=== PATIENT | male | born 1970 | race Caucasian/White ===

== ENCOUNTER 2016-07-02 18:19 | Inpatient (IN) | payer SELFPAY ==
[~2016-07-02] VITALS: Ht 177.8 cm; Wt 79.3 kg
[2016-07-02 19:30] LABS: Basophils # (auto) 0 uL; Basophils % (auto) 0.3 % (0.0-2.0); Eosinophils # (auto) 0.2 uL; Eosinophils % (auto) 1.4 % (0.0-7.0); Hematocrit 41.9 % (41.0-53.0); Hemoglobin 13.9 g/dL (13.5-17.5); Lymphocytes # (auto) 3.6 uL; Lymphocytes % (auto) 26.9 % (10.0-50.0); Mean Corpuscular Hgb Conc. 33.2 g/dL (32.0-36.0); Mean Corpuscular Volume 84.4 fL (80.0-100.0); Mean Platelet Volume 8.6 fL (7.4-10.4); Monocytes # (auto) 1.1 uL; Monocytes % (auto) 8.4 % (0.0-12.0); Neutrophils # (auto) 8.5 uL; Platelet Count (auto) 372 10^3/uL (140-450); Red Cell Distribution Width 13.2 % (11.6-16.0); White Blood Cell 13.4 10^3/uL (4.4-10.8)
[2016-07-02 19:51] LABS: Albumin 4.1 g/dL (3.4-5.0); BUN/Creatinine Ratio 12.8; Calcium 9.1 mg/dL (8.5-10.1); Potassium 3.8 mmol/L (3.5-5.1)
[2016-07-02 19:54] LABS: Bilirubin, Total 0.4 mg/dL (0.2-1.0); Total Protein 7.3 g/dL (6.4-8.2)
[2016-07-02 20:18] LABS: Urine Bilirubin Negative (Negative); Urine Ca Oxalate Crystal FEW (None Seen); Urine Color Yellow (Yellow); Urine Glucose Normal (Normal); Urine Ketone Negative (Negative); Urine Mucus FEW (None Seen); Urine Nitrite Negative (Negative); Urine RBC 26 /hpf (0 - 3); Urine Squamous Epithelial Cell FEW /hpf (<5); Urine Urobilinogen Normal (Negative); Urine pH 5.5 (5.0-8.0)
[2016-07-02 20:30] LABS: Urine Blood 2+ /uL (Negative)
[2016-07-03] MEDS ORDERED: SODIUM CHLORIDE 0.9% 1,000 ML IV ONE (00:30)
[2016-07-03] MEDS ORDERED: MORPHINE SULFATE 4 MG/ML SYRG IV ONE ×2 (00:30→05:00)
[2016-07-03] MEDS ORDERED: cefTRIAXone 1GM/50ML D5W 50 ML IV ONE (00:30)
[2016-07-03] MEDS ORDERED: ONDANSETRON HCL 4 MG/2 ML VIAL IV ONE ×2 (00:30→05:00)
[2016-07-03] MEDS ORDERED: SODIUM CHLORIDE 0.9% 1,000 ML IV SCH (05:41)
[2016-07-03] MEDS ORDERED: HYDROcodone-ACET 5/325MG TAB PO PRN (05:45)
[2016-07-03] MEDS ORDERED: ACETAMINOPHEN 325 MG TAB PO PRN (05:45)
[2016-07-03] MEDS ORDERED: ONDANSETRON HCL 4 MG/2 ML VIAL IV PRN (05:45)
[2016-07-03] MEDS ORDERED: TAMSULOSIN HYDROCHLORIDE 0.4 MG CAP PO ONE (05:45)
[2016-07-03 08:30] VITALS: BP 136/96
[2016-07-03 09:00] VITALS: BP 136/96
[2016-07-03] MEDS: FAMOTIDINE 20 MG TAB PO SCH ×2 (09:11→22:18)
[2016-07-03] MEDS ORDERED: ENOXAPARIN SOD 40 MG/0.4 ML SYRINGE SC SCH (10:00)
[2016-07-03] MEDS ORDERED: ENOXAPARIN SOD 30 MG/0.3 ML SYRINGE SC SCH (10:00)
[2016-07-03 13:00] VITALS: BP 132/74
[2016-07-03] MEDS: SOD CHL 0.9%/ KCL 20MEQ 1,000 ML IV SCH ×2 (13:16→23:00)
[2016-07-03] MEDS: MORPHINE SULF INJ 2 MG/ML SYRINGE 1ML IV PRN ×2 (13:59→20:52)
[2016-07-03 17:00] VITALS: BP 141/84
[2016-07-03] MEDS ORDERED: TAMSULOSIN HYDROCHLORIDE 0.4 MG CAP PO SCH (18:00)
[2016-07-03 18:49] LABS: INR 0.98 (0.9-1.15); Partial Thromboplastin Time 26.4 sec (22.64-33.71); Prothrombin Time 10.6 sec (9.37-12.3)
[2016-07-03 21:30] VITALS: BP 141/83
[2016-07-04 05:00] VITALS: BP 144/81
[2016-07-04 07:00] LABS: Basophils # (auto) 0.1 uL; Basophils % (auto) 0.5 % (0.0-2.0); Eosinophils # (auto) 0.3 uL; Eosinophils % (auto) 2.4 % (0.0-7.0); Hematocrit 42.9 % (41.0-53.0); Hemoglobin 14.1 g/dL (13.5-17.5); Lymphocytes # (auto) 3.1 uL; Lymphocytes % (auto) 23.1 % (10.0-50.0); Mean Corpuscular Hemoglobin 28.2 pg (28.0-32.0); Mean Corpuscular Hgb Conc. 32.9 g/dL (32.0-36.0); Mean Corpuscular Volume 85.7 fL (80.0-100.0); Mean Platelet Volume 9.9 fL (7.4-10.4); Monocytes % (auto) 7.8 % (0.0-12.0); Neutrophils # (auto) 8.8 uL; Neutrophils % (auto) 66.2 % (37.0-80.0); Platelet Count (auto) 352 10^3/uL (140-450); Red Cell Distribution Width 13.1 % (11.6-16.0); White Blood Cell 13.3 10^3/uL (4.4-10.8)
[2016-07-04 07:21] LABS: BUN/Creatinine Ratio 12.3; Calcium 8.5 mg/dL (8.5-10.1); Potassium 4.5 mmol/L (3.5-5.1)
[2016-07-04 08:00] VITALS: BP 149/50
[2016-07-04 09:00] VITALS: BP 160/101
[2016-07-04] MEDS ORDERED: cefTRIAXone 1GM/50ML D5W 50 ML IV SCH (09:00)
[2016-07-04] MEDS ORDERED: CIPR-173 PO (10:07)
[2016-07-04] MEDS ORDERED: hydrALAZINE HCL 20 MG/ML VL IV PRN (10:15)
[2016-07-04] MEDS ORDERED: SODIUM CHLORIDE 0.9% 1,000 ML IV SCH (10:15)
[2016-07-04] MEDS: FAMOTIDINE 20 MG TAB PO SCH (10:58)
[2016-07-04] MEDS ORDERED: MIDAZOLAM HCL 1MG/1ML-2 ML VIAL ONE (12:36)
[2016-07-04] MEDS ORDERED: PROPOFOL 10 MG/ML 20 ML IV ONE (12:36)
[2016-07-04] MEDS ORDERED: ONDANSETRON HCL 4 MG/2 ML VIAL ONE (12:36)
[2016-07-04] MEDS ORDERED: fentaNYL CITRATE 100 MCG/2 ML VL ONE (12:36)
[2016-07-04] MEDS ORDERED: ROCURONIUM 10MG/ML 10ML VIAL IV ONE (12:36)
[2016-07-04] MEDS ORDERED: SUCCINYLCHOLINE CHLORIDE 20 MG/ML 10ML VIAL IV ONE (12:36)
[2016-07-04] MEDS ORDERED: ceFAZolin 1GM/50ML D5W 50 ML IV ONE (12:55)
[2016-07-04 13:00] VITALS: BP 137/86
[2016-07-04] MEDS ORDERED: KETOROLAC TROMETH 30 MG/ML 1ML VIAL IV ONE (13:45)
[2016-07-04] MEDS ORDERED: METOCLOPRAMIDE HCL 5MG/ml INJ 2ml VIAL IV ONE (13:45)
[2016-07-04] MEDS ORDERED: HYDROmorphone HCL 2 MG/ML VL IV PRN (13:45)
[2016-07-04 14:45] VITALS: BP 164/70
== END 2016-07-04 17:20 | disposition home or self-care (01) | DRG 694 ==
LOC: ER 18:22 → OVERFLOW 18:23 → EAST 07-03 08:37
PROVIDERS: ADMIT Nurse Practitioner; ATTEND Internal Medicine
PROC: 0T778DZ Dilation of Left Ureter with Intraluminal Device, Via Natural or Artificial Opening Endoscopic (ICD-10-PCS; principal; 2016-07-04 13:08)
DX: N13.2 Hydronephrosis with renal and ureteral calculous obstruction (principal); M43.16 Spondylolisthesis, lumbar region; F17.210 Nicotine dependence, cigarettes, uncomplicated; K57.90 Diverticulosis of intestine, part unspecified, without perforation or abscess without bleeding; I10 Essential (primary) hypertension; N39.0 Urinary tract infection, site not specified; Z88.2 Allergy status to sulfonamides
CPT/HCPCS: 36415; 74000; 74176; 76000; 80048; 80053; 81001; 85025; 85610; 85730; 87081; 87086; 96365; 96375; 96376; J0330; J0690; J0696; J2250; J2405; J2704

== ENCOUNTER 2016-07-11 14:32 | Inpatient (IN) | payer SELFPAY ==
[~2016-07-11] VITALS: Ht 177.8 cm; Wt 80.1 kg
[~2016-07-11 14:32] MED LIST: CIPR-173 PO
[2016-07-11 15:05] LABS: Basophils # (auto) 0.1 uL; Basophils % (auto) 0.5 % (0.0-2.0); Eosinophils # (auto) 0.4 uL; Hematocrit 43.9 % (41.0-53.0); Hemoglobin 14.5 g/dL (13.5-17.5); Lymphocytes % (auto) 22.3 % (10.0-50.0); Mean Corpuscular Hemoglobin 27.9 pg (28.0-32.0); Mean Corpuscular Volume 84.7 fL (80.0-100.0); Mean Platelet Volume 8.7 fL (7.4-10.4); Monocytes % (auto) 7.5 % (0.0-12.0); Neutrophils # (auto) 8.9 uL; Neutrophils % (auto) 66.7 % (37.0-80.0); Platelet Count (auto) 403 10^3/uL (140-450); Red Cell Distribution Width 13.2 % (11.6-16.0); White Blood Cell 13.4 10^3/uL (4.4-10.8)
[2016-07-11 15:20] LABS: Urine Bilirubin Negative (Negative); Urine Color Red (Yellow); Urine Glucose Normal (Normal); Urine Ketone Negative (Negative); Urine Mucus FEW (None Seen); Urine Nitrite Negative (Negative); Urine RBC 71 /hpf (0 - 3); Urine Urobilinogen Normal (Negative)
[2016-07-11 15:22] LABS: Albumin 4.2 g/dL (3.4-5.0); BUN/Creatinine Ratio 14.1; Calcium 9.2 mg/dL (8.5-10.1); Potassium 3.9 mmol/L (3.5-5.1)
[2016-07-11 15:26] LABS: Bilirubin, Total 0.3 mg/dL (0.2-1.0); Total Protein 7.7 g/dL (6.4-8.2)
[2016-07-11 15:26] LABS: Urine Blood 3+ /uL (Negative)
[2016-07-11] MEDS ORDERED: ONDANSETRON HCL 4 MG/2 ML VIAL IV ONE (18:45)
[2016-07-11] MEDS ORDERED: MORPHINE SULFATE 4 MG/ML SYRG IV ONE (18:45)
[2016-07-11] MEDS ORDERED: LEVOFLOXACIN 500MG 100 ML IV ONE (20:45)
[2016-07-11] MEDS ORDERED: HYDROcodone-ACET 5/325MG TAB PO PRN (22:30)
[2016-07-11] MEDS ORDERED: TEMAZEPAM 15 MG CAP PO PRN (22:30)
[2016-07-11] MEDS ORDERED: ONDANSETRON HCL 4 MG/2 ML VIAL IV PRN (22:30)
[2016-07-11] MEDS ORDERED: ACETAMINOPHEN 325 MG TAB PO PRN (22:30)
[2016-07-11 23:00] VITALS: BP 132/73
[2016-07-11 23:15] VITALS: BP 132/73
[2016-07-12] MEDS: MORPHINE SULF INJ 2 MG/ML SYRINGE 1ML IV PRN ×3 (00:05→11:00)
[2016-07-12] MEDS: SODIUM CHLORIDE 0.9% 1,000 ML IV SCH ×2 (00:05→11:49)
[2016-07-12 05:00] VITALS: BP 126/80
[2016-07-12 05:22] LABS: Basophils # (auto) 0.1 uL; Basophils % (auto) 0.7 % (0.0-2.0); DEFINITIVE VIEW TRANSMISSION; Eosinophils # (auto) 0.8 uL; Eosinophils % (auto) 6.2 % (0.0-7.0); Hematocrit 40.1 % (41.0-53.0); Hemoglobin 13.1 g/dL (13.5-17.5); Lymphocytes # (auto) 3.7 uL; Lymphocytes % (auto) 29.4 % (10.0-50.0); Mean Corpuscular Hemoglobin 28.1 pg (28.0-32.0); Mean Corpuscular Hgb Conc. 32.8 g/dL (32.0-36.0); Mean Corpuscular Volume 85.7 fL (80.0-100.0); Mean Platelet Volume 9.1 fL (7.4-10.4); Monocytes # (auto) 1.2 uL; Monocytes % (auto) 9.8 % (0.0-12.0); Neutrophils # (auto) 6.9 uL; Neutrophils % (auto) 53.9 % (37.0-80.0); Platelet Count (auto) 362 10^3/uL (140-450); Red Cell Distribution Width 13.4 % (11.6-16.0); White Blood Cell 12.7 10^3/uL (4.4-10.8)
[2016-07-12 05:37] LABS: Albumin 3.4 g/dL (3.4-5.0); BUN/Creatinine Ratio 17.1; Calcium 8.2 mg/dL (8.5-10.1); Potassium 4.2 mmol/L (3.5-5.1)
[2016-07-12 05:39] LABS: Bilirubin, Total 0.2 mg/dL (0.2-1.0); Total Protein 6.5 g/dL (6.4-8.2)
[2016-07-12 06:40] VITALS: BP 116/70
[2016-07-12] MEDS ORDERED: PNEUMOCOCCAL VACC POLYS 25 MCG/0.5 ML VIAL IM ONE (06:45)
[2016-07-12 08:00] VITALS: BP 116/70
[2016-07-12] MEDS: FAMOTIDINE 20 MG TAB PO SCH ×2 (10:00→21:47)
[2016-07-12 10:48] VITALS: BP 126/82
[2016-07-12 11:32] LABS: INR 1.04 (0.9-1.15); Partial Thromboplastin Time 26.2 sec (22.64-33.71); Prothrombin Time 11.2 sec (9.37-12.3)
[2016-07-12] MEDS ORDERED: ceFAZolin 1GM/50ML D5W 50 ML IV ONE (12:55)
[2016-07-12] MEDS ORDERED: fentaNYL CITRATE 100 MCG/2 ML VL ONE (13:02)
[2016-07-12] MEDS ORDERED: MIDAZOLAM HCL 1MG/1ML-2 ML VIAL ONE (13:02)
[2016-07-12] MEDS ORDERED: DEXAMETHASONE SOD PHOS 10MG/1ML VIAL INJ IV ONE (13:04)
[2016-07-12] MEDS ORDERED: PROPOFOL 10 MG/ML 20 ML IV ONE (13:16)
[2016-07-12] MEDS ORDERED: MEPERIDINE HCL (50 MG/ML) 1 ML VIAL ONE (13:25)
[2016-07-12] MEDS ORDERED: ONDANSETRON HCL 4 MG/2 ML VIAL IV ONE (13:30)
[2016-07-12] MEDS ORDERED: LABETALOL HCL 5 MG/ML 4ML SYRINGE IV PRN (13:30)
[2016-07-12] MEDS ORDERED: ePHEDrine SULFATE 50 MG/ML AMP IV PRN (13:30)
[2016-07-12] MEDS ORDERED: MIDAZOLAM HCL 1MG/1ML-2 ML VIAL IV PRN (13:30)
[2016-07-12] MEDS ORDERED: MORPHINE SULF INJ 2 MG/ML SYRINGE 1ML IV PRN (13:30)
[2016-07-12] MEDS ORDERED: KETOROLAC TROMETH 30 MG/ML 1ML VIAL IV ONE (13:30)
[2016-07-12] MEDS ORDERED: HYDROmorphone HCL 2 MG/ML VL IV PRN (13:30)
[2016-07-12 15:54] VITALS: BP 140/80
[2016-07-12] MEDS ORDERED: LEVOFLOXACIN 500MG 100 ML IV SCH (21:00)
[2016-07-12 21:57] VITALS: BP 149/91
[2016-07-13 05:00] VITALS: BP 136/88
[2016-07-13 06:18] LABS: Basophils # (auto) 0 uL; Basophils % (auto) 0.1 % (0.0-2.0); Eosinophils # (auto) 0 uL; Eosinophils % (auto) 0.1 % (0.0-7.0); Hemoglobin 13.3 g/dL (13.5-17.5); Lymphocytes % (auto) 11.4 % (10.0-50.0); Mean Corpuscular Hemoglobin 27.8 pg (28.0-32.0); Mean Corpuscular Hgb Conc. 32.4 g/dL (32.0-36.0); Mean Corpuscular Volume 85.6 fL (80.0-100.0); Mean Platelet Volume 9.6 fL (7.4-10.4); Monocytes # (auto) 0.9 uL; Monocytes % (auto) 5.5 % (0.0-12.0); Neutrophils # (auto) 14.4 uL; Neutrophils % (auto) 82.9 % (37.0-80.0); Platelet Count (auto) 384 10^3/uL (140-450); Red Cell Distribution Width 13.1 % (11.6-16.0); White Blood Cell 17.4 10^3/uL (4.4-10.8)
[2016-07-13 06:47] LABS: BUN/Creatinine Ratio 17.6; Calcium 8.2 mg/dL (8.5-10.1); Magnesium 2.1 mg/dL (1.6-2.6); Potassium 4.3 mmol/L (3.5-5.1)
[2016-07-13 08:00] VITALS: BP 147/82
[2016-07-13 09:00] VITALS: BP 147/82
[2016-07-13] MEDS ORDERED: CIPR-217 PO (10:09)
[2016-07-13] MEDS: FAMOTIDINE 20 MG TAB PO SCH (11:20)
[2016-07-13 13:00] VITALS: BP 144/82
[2016-07-13 13:20] VITALS: BP 147/82
== END 2016-07-13 14:37 | disposition home or self-care (01) | DRG 691 ==
LOC: ER 14:32 → WEST WING 14:33
PROVIDERS: ADMIT Nurse Practitioner; ATTEND Internal Medicine
PROC: 0TF7XZZ Fragmentation in Left Ureter, External Approach (ICD-10-PCS; 2016-07-12)
PROC: 0TP98DZ Removal of Intraluminal Device from Ureter, Via Natural or Artificial Opening Endoscopic (ICD-10-PCS; principal; 2016-07-12 13:09)
DX: N20.2 Calculus of kidney with calculus of ureter (principal); N39.0 Urinary tract infection, site not specified; F17.210 Nicotine dependence, cigarettes, uncomplicated; I10 Essential (primary) hypertension; Z96.89 Presence of other specified functional implants; Z88.2 Allergy status to sulfonamides; Z80.8 Family history of malignant neoplasm of other organs or systems
CPT/HCPCS: 36415; 74176; 80048; 80053; 81001; 83735; 85025; 85048; 85610; 85730; 87081; 87086; 96365; 96375; J0690; J1100; J1956; J2250; J2405; J2704

== ENCOUNTER 2018-04-11 08:28 | Emergency (ER) | payer MEDICAID ==
[~2018-04-11] VITALS: Ht 177.8 cm; Wt 77.1 kg
[~2018-04-11 08:28] MED LIST changes: +CIPR-217 PO
[2018-04-11 08:44] VITALS: BP 122/95
[2018-04-11] MEDS ORDERED: IPRATROPIUM BROM 0.5 MG/2.5ML INH SOL NEB ONE (09:15)
[2018-04-11] MEDS ORDERED: ALBUTEROL SULF 2.5 MG/0.5ML(0.5%) NEB SOLN NEB ONE (09:15)
== END 2018-04-11 09:46 | disposition home or self-care (01) ==
LOC: ER 08:28
DX: J20.9 Acute bronchitis, unspecified (principal); J01.00 Acute maxillary sinusitis, unspecified; I10 Essential (primary) hypertension; F17.210 Nicotine dependence, cigarettes, uncomplicated; Z87.442 Personal history of urinary calculi; Z87.440 Personal history of urinary (tract) infections
CPT/HCPCS: 71046; 94640; 99283; J7611; J7644

== ENCOUNTER 2018-05-01 08:24 | Emergency (ER) | payer MEDICAID ==
[~2018-05-01] VITALS: Ht 177.8 cm; Wt 81.6 kg
[2018-05-01 09:49] VITALS: BP 141/93
== END 2018-05-01 10:41 | disposition home or self-care (01) ==
LOC: ER 08:24
DX: J02.9 Acute pharyngitis, unspecified (principal); J20.9 Acute bronchitis, unspecified; I10 Essential (primary) hypertension; F17.210 Nicotine dependence, cigarettes, uncomplicated; Z87.442 Personal history of urinary calculi

== ENCOUNTER 2018-11-13 12:13 | Inpatient (IN) | payer MEDICAID ==
[~2018-11-13] VITALS: Ht 175.3 cm; Wt 77.1 kg
[2018-11-13] MEDS ORDERED: SODIUM CHLORIDE 0.9% 2,000 ML IV ONE (13:15)
[2018-11-13 13:38] LABS: Basophils # (auto) 0 uL; Eosinophils # (auto) 0 uL; Hematocrit 42.5 % (41.0-53.0); Hemoglobin 14.5 g/dL (13.5-17.5); Lymphocytes # (auto) 1.4 uL; Lymphocytes % (auto) 5.9 % (10.0-50.0); Mean Corpuscular Hemoglobin 29.3 pg (28.0-32.0); Mean Corpuscular Volume 86.3 fL (80.0-100.0); Monocytes % (auto) 8.5 % (0.0-12.0); Neutrophils # (auto) 20.7 uL; Neutrophils % (auto) 85.6 % (37.0-80.0); Nucleated Red Blood Cells % 0.1 %; Platelet Count (auto) 306 10^3/uL (140-450); Red Blood Cells 4.93 10^6/uL (4.5-5.90); Red Cell Distribution Width 13.8 % (11.8-14.3); White Blood Cell 24.2 10^3/uL (4.4-10.8)
[2018-11-13 14:10] LABS: Albumin 4.7 g/dL (3.4-5.0); Anion Gap 13 (5-15); Aspartate Aminotransferase 464 U/L (15-37); BUN/Creatinine Ratio 22.8; Blood Alcohol < 3.0 mg/dL (0-5); Blood Urea Nitrogen 77 mg/dL (7-18); Calcium 8.7 mg/dL (8.5-10.1); Carbon Dioxide 18 mmol/L (21-32); Chloride 106 mmol/L (98-107); GFR African American 25 mL/min; GFR Non-African American 21 mL/min; Glucose 114 mg/dL (74-106); Magnesium 3.1 mg/dL (1.6-2.6); Potassium 4.3 mmol/L (3.5-5.1); Sodium 137 mmol/L (136-145)
[2018-11-13 14:35] LABS: Alanine Aminotransferase 183 U/L (16-61); Alkaline Phosphatase 71 U/L (45-117); Bilirubin, Total 0.9 mg/dL (0.2-1.0); Total Protein 8.6 g/dL (6.4-8.2)
[2018-11-13 16:12] LABS: Urine Bacteria FEW /hpf (None Seen); Urine Blood 2+ /uL (Negative); Urine Hyaline Cast MOD /lpf (0 - 2); Urine Mucus FEW (None Seen); Urine Specific Gravity 1.021 (1.001-1.035); Urine Sperm PRESENT /hpf (None Seen); Urine WBC 1 /hpf (0 - 3)
[2018-11-13 16:26] LABS: Alcohol, Urine < 3.0 mg/dL (0-5); Amphetamine Screen, Urine POSITIVE (NEGATIVE); Barbiturate Scree,Urine NEGATIVE (NEGATIVE); Benzodiazephine Screen, Urine NEGATIVE (NEGATIVE); Cannabinoid Screen, Urine NEGATIVE (NEGATIVE); Cocaine Screen, Urine NEGATIVE (NEGATIVE); Opiate Scree,Urine NEGATIVE (NEGATIVE); Phencyclidine Screen, Urine NEGATIVE (NEGATIVE)
[2018-11-13 17:04] LABS: Creatine Kinase IFCC 18952 U/L (39-308)
[2018-11-13 18:25] LABS: Basophils # (auto) 0.2 uL; Basophils % (auto) 0.7 % (0.0-2.0); Eosinophils # (auto) 0 uL; Hematocrit 39.8 % (41.0-53.0); Hemoglobin 13.5 g/dL (13.5-17.5); Lymphocytes # (auto) 2.4 uL; Lymphocytes % (auto) 10.5 % (10.0-50.0); Mean Corpuscular Hemoglobin 28.9 pg (28.0-32.0); Mean Corpuscular Hgb Conc. 33.8 g/dL (32.0-36.0); Mean Corpuscular Volume 85.6 fL (80.0-100.0); Monocytes # (auto) 2.6 uL; Monocytes % (auto) 11.5 % (0.0-12.0); Neutrophils # (auto) 17.7 uL; Neutrophils % (auto) 77.3 % (37.0-80.0); Platelet Count (auto) 298 10^3/uL (140-450); Red Blood Cells 4.66 10^6/uL (4.5-5.90); Red Cell Distribution Width 13.8 % (11.8-14.3); White Blood Cell 22.9 10^3/uL (4.4-10.8)
[2018-11-13] MEDS ORDERED: SODIUM CHLORIDE 0.9% 1,000 ML IV ONE (21:15)
[2018-11-14] MEDS ORDERED: VANCOMYCIN 1GM/250ML 250 ML IV ONE (00:30)
[2018-11-14] MEDS ORDERED: PIPERACILLIN-TAZOB 3.375GM 100 ML IV ONE (00:30)
[2018-11-14] MEDS ORDERED: SODIUM CHLORIDE 0.9% 1,000 ML IV ONE (06:00)
[2018-11-14 06:05] VITALS: BP 162/93
== END 2018-11-14 07:04 | disposition left against medical advice (07) | DRG 190 ==
LOC: ER 12:18 → TELE 12:19
PROVIDERS: ADMIT Nurse Practitioner Family; ATTEND Internal Medicine
DX: I21.4 Non-ST elevation (NSTEMI) myocardial infarction (principal); R65.11 Systemic inflammatory response syndrome (SIRS) of non-infectious origin with acute organ dysfunction; E86.0 Dehydration; K70.30 Alcoholic cirrhosis of liver without ascites; D72.829 Elevated white blood cell count, unspecified; F19.10 Other psychoactive substance abuse, uncomplicated; N18.9 Chronic kidney disease, unspecified; I12.9 Hypertensive chronic kidney disease with stage 1 through stage 4 chronic kidney disease, or unspecified chronic kidney disease; F17.210 Nicotine dependence, cigarettes, uncomplicated; T67.5XXA Heat exhaustion, unspecified, initial encounter; Z53.21 Procedure and treatment not carried out due to patient leaving prior to being seen by health care provider; X30.XXXA Exposure to excessive natural heat, initial encounter; Y93.89 Activity, other specified; Y92.89 Other specified places as the place of occurrence of the external cause; Y99.8 Other external cause status; Z87.442 Personal history of urinary calculi; Z88.2 Allergy status to sulfonamides
CPT/HCPCS: 36415; 71045; 80053; 80307; 80320; 81001; 82550; 83605; 83735; 84484; 85025; 87040; 93005; 94761; 96361; 96365; 96366; 96367; G0378; J2543

== ENCOUNTER 2019-02-24 08:08 | Emergency (ER) | payer SELFPAY ==
[~2019-02-24] VITALS: Ht 175.3 cm; Wt 77.1 kg
[2019-02-24 08:49] LABS: Basophils # (auto) 0.1 uL; Basophils % (auto) 0.5 % (0.0-2.0); Eosinophils # (auto) 0.1 uL; Eosinophils % (auto) 0.7 % (0.0-7.0); Hematocrit 41.8 % (41.0-53.0); Hemoglobin 14.1 g/dL (13.5-17.5); Lymphocytes # (auto) 2.6 uL; Lymphocytes % (auto) 17.5 % (10.0-50.0); Mean Corpuscular Hemoglobin 29.2 pg (28.0-32.0); Mean Corpuscular Hgb Conc. 33.7 g/dL (32.0-36.0); Mean Corpuscular Volume 86.7 fL (80.0-100.0); Monocytes # (auto) 1.1 uL; Monocytes % (auto) 7.4 % (0.0-12.0); Neutrophils % (auto) 73.9 % (37.0-80.0); Platelet Count (auto) 302 10^3/uL (140-450); Red Blood Cells 4.82 10^6/uL (4.5-5.90); Red Cell Distribution Width 12.8 % (11.8-14.3); White Blood Cell 14.9 10^3/uL (4.4-10.8)
[2019-02-24 09:12] LABS: Albumin 3.6 g/dL (3.4-5.0); BUN/Creatinine Ratio 12.8; Calcium 8.4 mg/dL (8.5-10.1); Potassium 4.1 mmol/L (3.5-5.1)
[2019-02-24 09:14] LABS: Bilirubin, Total 0.3 mg/dL (0.2-1.0); Total Protein 7.5 g/dL (6.4-8.2)
[2019-02-24 09:57] VITALS: BP 139/89
== END 2019-02-24 11:03 | disposition home or self-care (01) ==
LOC: ER 08:09
DX: S86.912A Strain of unspecified muscle(s) and tendon(s) at lower leg level, left leg, initial encounter (principal); F17.210 Nicotine dependence, cigarettes, uncomplicated; I10 Essential (primary) hypertension; Z88.2 Allergy status to sulfonamides; X58.XXXA Exposure to other specified factors, initial encounter; Y93.89 Activity, other specified; Y99.8 Other external cause status; Y92.89 Other specified places as the place of occurrence of the external cause
CPT/HCPCS: 36415; 80053; 85025; 93971

== ENCOUNTER → 2019-06-24 | Emergency (ER) | payer SELFPAY ==
[~2019-06-24] VITALS: Ht 175.3 cm; Wt 77.1 kg
[~2019-06-24] MED LIST changes: -CIPR-217 PO; +CIPR500T4 PO; +IBUPROFEN 800 MG TAB PO ONE
[2019-06-24 14:49] VITALS: BP 163/99
== END | disposition home or self-care (01) ==
LOC: ER 13:07
DX: S60.420A Blister (nonthermal) of right index finger, initial encounter (principal); S60.322A Blister (nonthermal) of left thumb, initial encounter; I10 Essential (primary) hypertension; F17.210 Nicotine dependence, cigarettes, uncomplicated; Z88.2 Allergy status to sulfonamides; X58.XXXA Exposure to other specified factors, initial encounter; Y93.89 Activity, other specified; Y92.9 Unspecified place or not applicable; Y99.8 Other external cause status

== ENCOUNTER 2020-02-28 07:57 | Emergency (ER) | payer SELFPAY ==
[~2020-02-28] VITALS: Ht 154.9 cm; Wt 81.6 kg
[~2020-02-28 07:57] MED LIST changes: -IBUPROFEN 800 MG TAB PO ONE
[2020-02-28 08:26] VITALS: BP 137/99
[2020-02-28] MEDS ORDERED: methylPREDNISolone SOD SUCC 125 MG/2 ML VL IM ONE (09:30)
== END 2020-02-28 10:02 | disposition home or self-care (01) ==
LOC: ER 07:57
DX: M70.21 Olecranon bursitis, right elbow (principal); F17.210 Nicotine dependence, cigarettes, uncomplicated; I10 Essential (primary) hypertension; Z88.2 Allergy status to sulfonamides; Z79.899 Other long term (current) drug therapy; Y93.89 Activity, other specified
CPT/HCPCS: 73080; 96372; 99283; J2930

== ENCOUNTER 2025-02-02 16:59 | Emergency (ER) | payer MEDICAID ==
[~2025-02-02] VITALS: Ht 177.8 cm; Wt 77.0 kg
[2025-02-02] MEDS ORDERED: DOXY100C79 PO (18:22)
--- NOTE | 2025-02-02 18:23 | ED.PDOC ---
History of Present Illness(SKN HPI Comments 54-year-old male presents to ER with complaints of wound check. Patient reports that he has had a nonhealing wound to left lower leg from a "possible insect bite" x2 weeks and presents to ER today for wound check. Reports intermittent yellow drainage from wound to left lower leg x1 day and presents to ER ambulatory on arrival, afebrile, with steady gait, in no distress and denies any current pain. Denies fever, body aches, chills, calf pain or any further symptoms/complaints Chief Complaint: Wound Check Time Seen by MD: 18:17 Primary Care Provider: NONE History of Present Illness: Nurses Notes, Medications, Allergies Allergies: Coded Allergies: Sulfa Antibiotics (Verified Allergy, Unknown, 07/03/16) Home Meds Active Scripts Doxycycline (Monohydrate) (Doxycycline) 100 Mg Cap, 100 MG PO BID for 7 Days, #14 CAP 0 Refills Prov:BETTE PACKER 02/02/25 Ciprofloxacin Hcl (Ciprofloxacin Hcl) 500 Mg Tab, 1 TAB PO BID, #14 TAB Prov:ADIEL SHEPARD MD 07/13/16 Ciprofloxacin Hcl (Cipro) 500 Mg Tab, 1 TAB PO BID, #10 TAB Prov:THOMAS LAL MD 07/04/16 Information Source: Patient Mode of Arrival: Ambulatory Past Medical History PAST MEDICAL HISTORY: HTN, Kidney Stones Surgical History: Hernia Repair Family History Family History: Unknown Social History Smoker: Cigarettes, Less Than 1 Pack/Day Alcohol: Rarely Drugs: Denies Drug Use Lives In: Home Constitutional: denies: chills, diaphoresis, fatigue, fever, malaise, sweats, weakness, others EENTM: denies: blurred vision, double vision, ear bleeding, ear discharge, ear drainage, ear pain, ear ringing, eye pain, eye redness, hearing loss, mouth pain, mouth swelling, nasal discharge, nose bleeding, nose congestion, nose pain, photophobia, tearing, throat pain, throat swelling, voice changes, others Respiratory: denies: cough, hemoptysis, orthopnea, SOB at rest, shortness of breath, SOB with excertion, stridor, wheezing, others Cardiovascular: denies: chest pain, dizzy spells, diaphoresis, Dyspnea on exertion, edema, irregular heart beat, left arm pain, lightheadedness, palpitations, PND, syncope, others Gastrointestinal: denies: abdomen distended, abdominal pain, blood streaked bowels, constipated, diarrhea, dysphagia, difficulty swallowing, hematemesis, melena, nausea, poor appetite, poor fluid intake, rectal bleeding, rectal pain, vomiting, others Genitourinary: denies: burning, dysuria, flank pain, frequency, hematuria, incontinence, penile discharge, penile sore, pain, testicle pain, testicle swelling, urgency, others Neurological: denies: dizziness, fainting, headache, left sided numbness, left sided weakness, numbness, paresthesia, pre-existing deficit, right sided numbness, right sided weakness, seizure, speech problems, tingling, tremors, weakness, others Musculoskeletal: denies: back pain, gout, joint pain, joint swelling, muscle pain, muscle stiffness, neck pain, others Integumetry: reports: others (As stated in HPI) Allergic/Immunocompromised: denies: Difficulty Healing, Frequent Infections, Hives, Itching, others Hematologic/Lymphatic: denies: anemia, blood clots, easy bleeding, easy bruising, swollen glands, others Endocrine: denies: excessive hunger, excessive sweating, excessive thirst, excessive urination, flushing, intolerance to cold, intolerance to heat, unexplained weight gain, unexplained weight loss, others Psychiatric: denies: anxiety, bipolar disorder, depression, hopeless, panic disorder, schizophrenia, sleepless, suicidal, others Physical Exam General Appearance: No Apparent Distress HEENT: PERRL/EOMI Neck: Full Range of Motion, Non-Tender, Normal Respiratory: Chest Non-Tender, Lungs Clear, No Accessory Muscle Use, No Respiratory Distress, Normal Breath Sounds Cardiovascular: No Murmur, No Gallop, Regular Rate/Rhythm Breast Exam: Deferred Gastrointestinal: NOT DONE Genitalia: Deferred Pelvic: Deferred Rectal: Deferred Extremities: No calf tenderness, Normal capillary refill, Normal range of motion, No pedal edema Neurologic: Alert, No Motor Deficits, Normal Affect, Normal Mood, No Sensory Deficits Cerebellar Function: Normal Reflexes: Normal Skin: Dry, Warm, Other (3 cm x 3 cm healing wound noted to left lower extremity with scabbing noted and minimal erythema surrounding wound edges. No heri inage/fluctuance/red streaking/foreign body noted. Gait intact without abnormality) Peripheral Pulses: 2+ dorsalis pedis (R), 2+ dorsalis pedis (L), 2+ Radial (R), 2+ Radial (L), 2+ Brachial (R), 2+ Brachial (L) Lymphatic: No Adenopathy Was a procedure done? Was a procedure done?: No Sedation Sedation?: No Differential Diagnosis (INTG) Differential Diagnosis: Abscess Differential Diagnosis: Neurovascular Injury Differential Diagnosis: Puncture Wound, Retained Foreign Body X-Ray, Labs, Meds, VS Vital Signs Date Time Temp Pulse Resp B/P (MAP) Pulse Ox O2 Delivery O2 Flow Rate FiO2 02/02/25 17:00 98.3 98 16 156/105 98 98.3 Wound care/cleaning discussed and advised Advised to follow up with PCP in 1-2 days Patient verbalized understanding and agreeable with current plan of care Advised to return to ER immediately if symptoms worsen Time of 1ST Reevaluation: 18:04 Reevaluation 1ST: N/A Patient Education/Counseling: Diagnosis, Treatment, Prognosis, Need For Follow Up Family Education/Counseling: No Family Present SEPSIS Sepsis Screen Date sepsis recognized/suspect: Feb 02, 2025 Time Sepsis recognized/suspect: 1702 Recent Procedure: No On Antibiotic Therapy: No Respiratory Rate >20: No Heart Rate >90: No Temp<36 C (96.8 F) or >38.3 C: No SBP <90 or MAP <65 mmHG: No New Acute Mental Status Change: No Is the patient on CPAP, BIPAP,: No Vital Signs Date Time Temp Pulse Resp B/P (MAP) Pulse Ox O2 Delivery O2 Flow Rate FiO2 02/02/25 17:00 98.3 98 16 156/105 98 98.3 Departure 1 Departure Time of Disposition: 18:20 Impression: Primary Impression: Cellulitis of left lower leg Disposition: 01 HOME / SELF CARE / HOMELESS Condition: Stable e-Prescriptions Doxycycline (Monohydrate) (Doxycycline) 100 Mg Cap 100 MG PO BID for 7 Days, #14 CAP 0 Refills Prov: BETTE PACKER 02/02/25 Discharged With: Self Critical Care Note Critical Care Time?: No Stability Stability form required: No Heart Score Heart Score: Heart Score Response (Comments) Value History N/A 0 EKG N/A 0 Age N/A 0 Risk Factors N/A 0 Troponin N/A 0 Total 0 BETTE PACKER Feb 02, 2025 18:22
[2025-02-02 18:30] VITALS: BP 148/102; PULSE 92; RESP 16; TEMP 98.6; O2SAT 98
== END 2025-02-02 18:31 | disposition home or self-care (01) ==
LOC: ER 16:59
DX: L03.116 Cellulitis of left lower limb (principal); I10 Essential (primary) hypertension; F17.210 Nicotine dependence, cigarettes, uncomplicated; Z87.442 Personal history of urinary calculi; Z88.2 Allergy status to sulfonamides; Z98.890 Other specified postprocedural states